=== PATIENT | male | born 1945 | race Caucasian/White ===

== ENCOUNTER 2017-06-11 16:14 | Inpatient (IN) | payer MEDICARE ==
[~2017-06-11] VITALS: Ht 175.3 cm; Wt 79.5 kg
--- NOTE | 2017-06-11 16:21 | NUR ---
Arrived to unit via ambulance, alert, calm, answers questions appropriately, oriented x 4, ambulates without assistance, talkative, pt arrived with no extra clothing, significant other to bring clothing tomorrow during visitation. Pt denies pain. States that he elected to come here to get his medications "straightened out". Pt has shown no aggression.
--- NOTE | 2017-06-11 18:31 | NUR ---
Alert, sitting in dayroom watching TV, calm, pleasant mood, reading newspaper, admission packet signed. Denies pain, no s/s distress.
[2017-06-11] MEDS ORDERED: RISPERDAL4 MG PO (20:55)
[2017-06-11] MEDS ORDERED: EFFEXOR37.5 MG PO (20:58)
[2017-06-11] MEDS ORDERED: BRILINTA90 MG PO (20:59)
[2017-06-11] MEDS ORDERED: LIPITOR80 MG PO (21:02)
[2017-06-11] MEDS ORDERED: COREG 3.1253.125 MG PO (21:02)
[2017-06-11] MEDS ORDERED: LISINOPRIL2.5 MG PO (21:03)
[2017-06-11] MEDS ORDERED: NITROSTAT0.4 MG SL (21:04)
[2017-06-11] MEDS ORDERED: HCTZ25 MG PO (21:06)
[2017-06-11] MEDS ORDERED: VALIUM5 MG PO (21:07)
[2017-06-11] MEDS ORDERED: BAYER CHEWABLE81 MG PO (21:09)
--- NOTE | 2017-06-11 22:46 | NUR ---
RECEIVED IN PATIENT ROOM. SITTING ON BED. CALM AND COOPERATIVE WITH CARE AND ASSESSMENT. NO SIGNS OF AGGRESSION. ENCOURAGE TO EXPRESS NEEDS. REDIRECT AND REORIENT NEEDED. RESTING IN BED WTIH EYES CLOSED AT THIS TIME. CONTINUE PLAN OF CARE.
[2017-06-12 04:57] LABS: BASOPHILS 0.7 % (0-2); EOSINOPHILS 2.2 % (0-7); HEMATOCRIT 40.9 % (42.0-54.0); HEMOGLOBIN 13.6 g/dL (13.5-17.5); IMMATURE GRANULOCYTES 0.4 % (0-5); LYMPHOCYTES 20.8 % (15-50); MCHC 33.3 g/dL (31.0-37.0); MCV 90.3 fL (80.0-100.0); MEAN PLATELET VOLUME 10.3 fL (7.4-10.4); MONOCYTES 10.6 % (2-11); NEUTROPHILS 65.3 % (40-80); PLATELET COUNT 359 10x3/uL (130-400); RBC 4.53 10x6/uL (4.20-6.10); RDW 15.4 % (11.5-14.5); WBC 9.9 10x3/uL (4.8-10.8)
[2017-06-12 05:20] LABS: HEMOGLOBIN A1C 5.9 % (4.8-6.0)
[2017-06-12 05:44] VITALS: BP 116/76; BMI 25.9
[2017-06-12 05:46] LABS: ALBUMIN 3.1 g/dL (3.4-5.0); ALKALINE PHOSPHATASE 105 U/L (46-116); ALT (SGPT) 28 U/L (10-68); BILIRUBIN - TOTAL 0.37 mg/dL (0.2-1.3); CALC OSMOLALITY 279 mosm/kg (275-300); CALCIUM 8.8 mg/dL (8.5-10.1); CARBON DIOXIDE 22.1 mmol/L (21.0-32.0); CHLORIDE - SERUM 103 mmol/L (98-107); CHOL - HDL RATIO 2.9 ratio (2.3-4.9); CHOLESTEROL, TOTAL 128 mg/dL (0-200); CREATININE - SERUM 0.8 mg/dL (0.6-1.3); GLUCOSE 94 mg/dL (74-106); HDL CHOLESTEROL 44 mg/dL (32-96); LDL CHOLESTEROL 69 mg/dL (0-100); LDL-HDL RATIO 1.6 ratio (1.5-3.5); POTASSIUM - SERUM 4.1 mmol/L (3.5-5.1); PROTEIN - SERUM 6.9 g/dL (6.4-8.2); SODIUM 140 mmol/L (136-145); THYROID STIMULATING HORMONE 0.72 uIU/mL (0.36-3.74); TRIGLYCERIDE 75 mg/dL (30-200); UREA NITROGEN 16 mg/dL (7-18); eGFR NON AFRICAN AMERICAN > 90 mL/min (90-120)
[2017-06-12 08:11] VITALS: BP 143/71
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
[2017-06-12 11:08] VITALS: BMI 25.8
--- NOTE | 2017-06-12 11:28 | NUR ---
PATIENT IS MANIC AND HE HAS BEEN HAVING FUN, BUT NOW HE IS LABILE HE IS CRYING AND HE DID RECEIVE ATIVAN 0.5 MG AND HALDOL 2 MG PO.
[2017-06-12 19:30] VITALS: BP 128/86
--- NOTE | 2017-06-12 22:09 | NUR ---
RECEIVED IN PATIENT ROOM. MOVING ABOUT GETTING READY FOR BED. CALM AND COOPERATIVE WT CARE AND ASSESSMENT. NO SIGNS OF AGGRESSION. ENCOURAGE TO EXPRESS NEEDS. REDIRECT AND REORIENT NEEDED. RESTING IN BED WITH EYES CLOSED AT THIS TIME. CONTINUE PLAN OF CARE.
[2017-06-13 06:15] LABS: RAPID PLASMA REAGIN Non Reactive (Non Reactive); VITAMIN D 25 HYDROXY 41.7 ng/mL (30.0-100.0)
[2017-06-13 09:17] LABS: FOLATE (FOLIC ACID) - SERUM 16.9 ng/mL (>3.0)
--- NOTE | 2017-06-13 09:25 | NUR ---
B) PATIENT IS AWAKE AND ALERT, HE SAYS HE IS SLEEPY TODAY, BUT HE IS NOT MANIC, HE DID HAVE HIS HIKING TYPE BOOTS ON WITH SHOE LACES, DID REMOVE THEM AND PROVIDED SLIPPER SOCKS. PATIENT DOES CONTINUE TO TALK, BUT HE IS NOT ELEVATED THIS AM HE WAS YESTERDAY AM. I) PROVIDE PRESCRIBED MEDS. R) PATIENT IS COMPLIANT WITH MEDS. P) CONTINUE POC.
[2017-06-13 11:12] VITALS: BP 128/64
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
[2017-06-13 14:54] LABS: APPEARANCE CLEAR (CLEAR); BACTERIA FEW /hpf (NONE SEEN); BILIRUBIN NEGATIVE (NEGATIVE); COLOR YELLOW (YELLOW); GLUCOSE NEGATIVE (NEGATIVE); KETONE NEGATIVE (NEGATIVE); NITRITE NEGATIVE (NEGATIVE); PROTEIN TRACE mg/dL (NEGATIVE); RED CELLS - URINE OCC /hpf (0-5); UROBILINOGEN NORMAL (NORMAL)
[2017-06-13 19:54] VITALS: BP 101/66
--- NOTE | 2017-06-13 23:38 | NUR ---
B) patient is alert and oriented, restless at times, wants to talk to the nurse and relate stories about his brother, I) Administered scheduled medications, monitored for safety allow time to express his thoughts, R) Medication compliant, resting quietly now. P) Continue plan of care.
--- NOTE | 2017-06-14 10:34 | PN ---
PATIENT:CHAYITO GAMBOA MEDICAL RECORD: [id number] LOCATION:YOVANNY Palomares112 ADMISSION DATE: 06/11/17 PROGRESS NOTE DATE OF SERVICE: 06/13/2017 SUBJECTIVE: The patient's case was discussed with staff. He has no new complaint. OBJECTIVE: The patient was tested by Dr. Priyanka Mckay and scored 25/30 on his [place] inventory. This places him in the mild level of impairment, which is actually better than what I would have guessed based on bedside exam. The patient is calmer than he previously was. He denies any thoughts of harming himself or others. He has limited insight about his condition. ASSESSMENT: 1. Bipolar disorder. 2. Dementia, probably Alzheimer's type. PLAN: At this time, the patient will be maintained on current medicines, which I have reviewed. His long-term prognosis is guarded. TRANSINT:[id number] Voice Confirmation ID: [id number] DOCUMENT ID: [id number] EDA DAN MD at 1034 CC: [id number] DICTATION DATE: 06/13/17 1229 ELEMENTARY SUBSTITUTE TEACHER: 06/13/17 1306 ADM IN [facility] [address] [place] [address]
--- NOTE | 2017-06-14 11:08 | NUR ---
B) PATIENT IS AWAKE AND ALERT AND HE IS AMBULATORY, HE HAS BEEN TALKATIVE, BUT HE HAS BEEN CALMER, HE HAS NOT SHOWN AGGRESSION OR TEARFULNESS. I) PROVIDE PRESCRIBED MEDS. R) PATIENT IS COMPLIANT WITH MEDS AND UNIT MILIE[facility]. P) CONTINUE POC.
[2017-06-14 11:52] VITALS: BP 114/86
--- NOTE | 2017-06-14 19:28 | PN ---
PATIENT:CHAYITO GAMBOA MEDICAL RECORD: [id number] LOCATION:YOVANNY PalomaresIrasema ADMISSION DATE: 06/11/17 PROGRESS NOTE DATE OF SERVICE: 06/14/2017 SUBJECTIVE: The patient's case was discussed with staff. He has no new complaint. OBJECTIVE: The patient denies intent to harm himself or others. He generally tolerates his medicines well. ASSESSMENT: No change in diagnoses. PLAN: Current medicines and therapies have been reviewed and will be maintained. Long-term prognosis is guarded. On the whole, he is significantly better. I am going to taper his Klonopin a little further. I will also check a lithium level. TRANSINT:[id number] Voice Confirmation ID: [id number] DOCUMENT ID: [id number] EDA DAN MD at 1928 CC: [id number] DICTATION DATE: 06/14/17 1039 TELECOMMUNICATIONS SWITCH TECHNICIAN: 06/14/17 1138 ADM IN [facility] [address] [place] [address]
[2017-06-14 20:27] VITALS: BP 142/74
--- NOTE | 2017-06-15 05:26 | NUR ---
B) patient is alert and oriented, friendly and social, some statements are inapp. I) Administered scheduled medications, redirected as needed, R) Medication compliant p) Continue plan of care.
[2017-06-15 07:00] VITALS: BP 122/81
--- NOTE | 2017-06-15 08:37 | NUR ---
ADMINISTERED MORNING MEDS WHOLE WITHOUT DIFFICULTY. ALERT AND ORIENTED X3. PLEASANT AFFECT. DENIES ANY PAIN. WILL CONTINUE TO MONITOR
--- NOTE | 2017-06-15 16:40 | NUR ---
ALERT AND AMBULATORY.FRIENDLY,TALKS WITH STAFF AND PEERS.COMPLIANT WITH STAFF AND MEDS .WILL CONTINUE WITH PLAN OF CARE,MONITOR FOR CHANGES AND SAFETY.
--- NOTE | 2017-06-15 19:49 | NUR ---
RECEIVED IN BEDROOM. RESTING IN BED WITH EYES CLOSED. RESPONDS TO VOICE. CALM AND COOPERATIVE WITH CARE AND ASSESSMENT. NO SIGNS OF AGGRESSION. ENCOURAGE TO EXPRESS NEEDS. RESTING IN BED WITH EYES CLOSED AT THIS TIME. CONTINUE PLAN OF CARE
[2017-06-15 20:07] VITALS: BP 124/60
[2017-06-16 07:00] VITALS: BP 129/81
--- NOTE | 2017-06-16 09:18 | NUR ---
PT TOOK ALL MEDS COOPERATIVE AND PLEANSENT ATTITUDE NO PROBLEMS WILL MONITER
[2017-06-16 12:50] VITALS: Ht 175.3 cm; Wt 79.5 kg
--- NOTE | 2017-06-16 13:04 | NUR ---
PT DOES HAVE HIS WATCH AND RING ON BUT HE REFUSES TO GIVE THEM TO STAFF TO PLACE IN THE SAFE. PT WAS EDUCATED ON RISK OF KEEPING THEM BUT HE CONTINUED TO REFUSE TO ALLOW STAFF TO PLACE THEM IN THE SAFE.
--- NOTE | 2017-06-16 14:12 | PN ---
PATIENT:CHAYITO GAMBOA MEDICAL RECORD: [id number] LOCATION:YOVANNY Palomares112 ADMISSION DATE: 06/11/17 PROGRESS NOTE DATE OF SERVICE: 06/15/2017 SUBJECTIVE: The patient's case was discussed with staff. He has no new complaint. OBJECTIVE: The patient is in good behavioral control. He has limited insight about his condition. He generally tolerates his medicines well. ASSESSMENT: No change in diagnoses. PLAN: The patient has a subtherapeutic lithium level at 0.6 mEq. I am going to wait another day or two and check that again. He also is taking Klonopin, which I would like to taper off. I am going to reduce it by one-fourth today. TRANSINT:[id number] Voice Confirmation ID: [id number] DOCUMENT ID: [id number] EDA DAN MD at 1412 CC: [id number] DICTATION DATE: 06/15/17 1056 SUPERINTENDENT OPERATIONS DIVISION: 06/15/17 1333 ADM IN [address] [place] [place] [address]
[2017-06-16 19:30] VITALS: BP 147/90
--- NOTE | 2017-06-17 01:21 | NUR ---
RECEIVED IN BEDROOM. RESTING BED WITH EYES CLOSED. SOCIALIZING WITH PEERS THIS EVENING. CALM AND COOPERATIVE WITH CARE AND ASSESSMENTS. NO SIGNS OF AGGRESSION. RESTING EYES CLOSED AT THIS TIME. CONTINUE PLAN OF CARE
[2017-06-17 07:00] VITALS: BP 148/97
--- NOTE | 2017-06-17 12:23 | NUR ---
Nutrition Follow Up: Pt is eating 85% meal avg on a regular diet. Wt stable. +BM 06/12/17 - no BM x 5 days. No new labs. Meds noted. Rec continue current diet. Rec consider bowel regimen. RD following.
--- NOTE | 2017-06-17 12:42 | NUR ---
B) PATIENT IS AWAKE AND ALERT, HE IS HYPER, HE IS LOUD AND HE IS UP AND DOWN, MAKING SEXUALLY INAPPRORIATE STATEMENTS TOWARD STAFF. I) PROVIDE PRESCRIBED MEDS. R) PATIENT IS COMPLIANT WITH MEDS. P) CONTINUE POC.
--- NOTE | 2017-06-17 13:23 | PN ---
PATIENT:CHAYITO GAMBOA MEDICAL RECORD: [id number] LOCATION:YOVANNY Palomares112 ADMISSION DATE: 06/11/17 PROGRESS NOTE DATE OF SERVICE: 06/16/2017 SUBJECTIVE: The patient's case was discussed with staff. He has no new complaint. OBJECTIVE: The patient is in good behavioral control. He has no thoughts of self-harm. ASSESSMENT: No change in diagnoses. PLAN: The patient will have another lithium level checked tomorrow morning. I am also going to taper his Klonopin a little further. I would anticipate that if this level of improvement is maintained, he can be discharged soon. TRANSINT:[id number] Voice Confirmation ID: [id number] DOCUMENT ID: [id number] EDA DAN MD at 1323 CC: [id number] DICTATION DATE: 06/16/17 1418 LOAN OFFICER ASSISTANT: 06/16/17 1507 ADM IN [facility] [address] [place] [address]
[2017-06-17] MEDS ORDERED: ZYPREXA5 MG PO (13:36)
[2017-06-17] MEDS ORDERED: NAMENDA5 MG PO (13:36)
--- NOTE | 2017-06-17 23:30 | NUR ---
RECEIVED IN HALLWAY OUTSIDE OF NURSES STATION. ALERT AND ORIENTED. CALM AND COOPERATIVE WITH CARE AND ASSESSMENTS. NO SIGNS OF AGGRESSION. ENCOURAGE TO EXPRESS NEEDS. RESTING IN BED EYES OPEN AT THIS TIME. CONTINUE PLAN OF CARE
[2017-06-18 10:30] VITALS: BP 134/90
--- NOTE | 2017-06-18 10:30 | NUR ---
B) PATIENT IS MANIC AND HE SAYS VULGAR WORDS, HE GETS TOO CLOSE TO PEOPLE. HE AMBULATES INDEPENDENTLY. HE HAS TO BE REDIRECTED MULTIPLE TIMES ABOUT HIS LANGUAGE AND HIS GETTING TOO CLOSE TO PEOPLE. I) PROVIDE PRESCRIBED MEDS. R) PATIENT IS COMPLIANT WITH MEDS. P) CONTINUE POC.
--- NOTE | 2017-06-18 11:24 | NUR ---
ADDIE SPOKE WITH PT'S GF, PEBBLES, TO DISCUSS DISCHARGE PLANNING. ADDIE STATED PT IS DOING BETTER, HOWEVER, CONTINUES TO HAVE SOME BEHAVIORS TO GET UNDER CONTROL. ADDIE STATED PT WILL POSSIBLY BE DISCHARGED FRIDAY. SW REPORTED STAFF WILL CALL GF TO ASK ABOUT PU TIME.
--- NOTE | 2017-06-18 17:00 | PN ---
PATIENT:CHAYITO GAMBOA MEDICAL RECORD: [id number] LOCATION:YOVANNY Palomares112 ADMISSION DATE: 06/11/17 PROGRESS NOTE DATE OF SERVICE: 06/17/2017 SUBJECTIVE: The patient's case was discussed with staff. He has no new complaint. OBJECTIVE: The patient is in good behavioral control with limited insight about his condition. He generally tolerates his medicines well. He has a slightly subtherapeutic lithium level of 0.6 mEq. He is little irritable and anxious, but not overtly manic. ASSESSMENT: No change in diagnoses. PLAN: The patient will have a followup appointment with Dr. Simmons upon discharge. His long-term prognosis is guarded. TRANSINT:[id number] Voice Confirmation ID: [id number] DOCUMENT ID: [id number] EDA DAN MD at 1700 CC: [id number] DICTATION DATE: 06/17/17 1334 SOFTWARE ANALYST: 06/17/17 1453 ADM IN [id number] [place] [address]
[2017-06-18 19:30] VITALS: BP 149/91
--- NOTE | 2017-06-18 23:27 | NUR ---
B) patient is alert and oriented X 3, calm and cooperative this shift, rambling conversation at time, likes to relate stories to staff and peers, I) Administered scheduled medications, monitored for behaviors, R) Medication compliant, intrusive and overly shares opinions at times P) Continue plan of care.
[2017-06-19 09:47] VITALS: BP 129/73
--- NOTE | 2017-06-19 11:19 | NUR ---
B) PATIENT IS AWAKE AND HE IS ALERT, HE IS A LITTLE HYPER, BUT HE HAS NOT BEEN AGGRESSIVE TODAY, HE AMBULATES AND PARTICIPATES IN GROUPS AND ACTIVITIES. I) PROVIDE PRESCRIBED MEDS. R) PATIENT IS COMPLIANT WITH MEDS. P) CONTINUE POC.
[2017-06-19 12:37] VITALS: BP 129/73
--- NOTE | 2017-06-19 14:07 | PN ---
PATIENT:CHAYITO GAMBOA MEDICAL RECORD: [id number] LOCATION:YOVANNY Palomares112 ADMISSION DATE: 06/11/17 PROGRESS NOTE DATE OF SERVICE: 06/18/2017 SUBJECTIVE: The patient's case was discussed with staff. He has no new complaint. OBJECTIVE: The patient denies intent to harm himself or others. He generally tolerates his medicines well. Eye contact is fair. ASSESSMENT: No change in diagnoses. PLAN: Brief supportive and educational interventions were made. The patient's long-term prognosis is guarded. He will be maintained on current medicines, but in addition to that, I am going to start him on a second mood stabilizer, Depakote. TRANSINT:[id number] Voice Confirmation ID: [id number] DOCUMENT ID: [id number] EDA DAN MD at 1407 CC: [id number] DICTATION DATE: 06/18/17 172 FUNERAL LOCATION MANAGER: 06/19/17 0214 ADM IN [id number] [place] [address]
[2017-06-19 19:59] VITALS: BP 129/73
--- NOTE | 2017-06-20 01:44 | NUR ---
B) patient is alert and oriented, calm and cooperative with care and assessment, less hyperverbal this shift, social with staff and peers, I) Administered scheduled medications, monitored for behaviors, R) Medication compliant, follows unit milieu P) Continue plan of care.
[2017-06-20 08:30] VITALS: BP 118/090
--- NOTE | 2017-06-20 10:05 | PN ---
PATIENT:CHAYITO GAMBOA MEDICAL RECORD: [id number] LOCATION:YOVANNY PalomaresIrasema ADMISSION DATE: 06/11/17 PROGRESS NOTE DATE OF SERVICE: 06/19/2017 SUBJECTIVE: The patient's case was discussed with staff. He has no new complaint. OBJECTIVE: The patient is somewhat inappropriate socially, but not in a manner that requires this level of care. He certainly is showing no evidence of acute dangerousness to himself or others and he also has no evidence of impaired reality testing. He certainly has evidence of cognitive decline and indeed he did score in the mild range. ASSESSMENT: No change in diagnoses. PLAN: The patient will be transitioned out of the hospital tomorrow. His long-term prognosis is guarded. He should have a lithium and Depakote level done in 1 week. He is to have follow up with the [facility]. His prognosis will be largely contingent upon medication compliance and outpatient followup. TRANSINT:[id number] Voice Confirmation ID: [id number] DOCUMENT ID: [id number] EDA DAN MD at 1005 CC: [id number] DICTATION DATE: 06/19/17 1421 SENIOR MARKET RESEARCH ANALYST: 06/19/17 1527 ADM IN [facility] [address] [place] [address]
--- NOTE | 2017-06-20 21:07 | PN ---
PATIENT:CHAYITO GAMBOA MEDICAL RECORD: [id number] LOCATION:YOVANNY Hakwins ADMISSION DATE: 06/11/17 PROGRESS NOTE DATE OF SERVICE: 06/20/2017 SUBJECTIVE: The patient states that he is happy to be going home. OBJECTIVE: The patient is scheduled for discharge today. Staff report over the last 24 hours he has done well. He remains hypertalkative, but has not shown serious manic behavior. He is cooperative with medications. Discharge plan now has been set up for aftercare. On exam, mood is upbeat. Affect slightly expansive. Speech is very garrulous. Content of thought is negative for overt psychosis. Sensorium is unchanged. ASSESSMENT: No change in diagnosis. PLAN: Anticipate discharge later today. TRANSINT:[id number] Voice Confirmation ID: [id number] DOCUMENT ID: [id number] PRISCILLA MOORE III, MD at 2107 CC: [id number] DICTATION DATE: 06/20/17 1153 SOA ENGINEER: 06/20/17 1246 DIS IN 06/20/17 [facility] [address] [place] [address]
== END 2017-06-20 14:20 | disposition home or self-care (01) | DRG 885 ==
LOC: D.PSYCH 16:14
PROVIDERS: ADMIT Psychiatry & Neurology Psychiatry
DX: F30.10 Manic episode without psychotic symptoms, unspecified (principal); I10 Essential (primary) hypertension; I25.10 Atherosclerotic heart disease of native coronary artery without angina pectoris; Z95.5 Presence of coronary angioplasty implant and graft; Z95.1 Presence of aortocoronary bypass graft; E78.5 Hyperlipidemia, unspecified; K59.00 Constipation, unspecified; Z87.891 Personal history of nicotine dependence

== ENCOUNTER 2017-06-23 08:37 | Emergency (ER) | payer SELFPAY ==
[2017-06-16 12:50] VITALS: BMI 25.9
[~2017-06-23 08:37] MED LIST: BAYER CHEWABLE81 MG PO; BRILINTA90 MG PO; COREG 3.1253.125 MG PO; EFFEXOR37.5 MG PO; HCTZ25 MG PO; LIPITOR80 MG PO; LISINOPRIL2.5 MG PO; NAMENDA5 MG PO; NITROSTAT0.4 MG SL; RISPERDAL4 MG PO; VALIUM5 MG PO; ZYPREXA5 MG PO
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
== END 2017-06-23 11:35 | disposition home or self-care (01) ==
LOC: D.ER 08:37
DX: F31.9 Bipolar disorder, unspecified (principal); F17.200 Nicotine dependence, unspecified, uncomplicated